=== PATIENT | male | born 1940 | race Caucasian/White ===

== ENCOUNTER 2017-10-14 07:16 | Inpatient (IN) ==
[2017-10-14] MEDS ORDERED: IPRATROPIUM/ALBUTEROL 3 ML AMPUL.NEB NEB ONE ×2 (07:18→07:22)
[2017-10-14] MEDS ORDERED: LACTATED RINGERS 1,000 ML IV ONE (07:25)
--- NOTE | 2017-10-14 07:36 | Emergency Department Note ---
General Adult HPI - General Chief complaint: Weakness Stated complaint: Weakness Time Seen by Provider: 10/14/17 07:31 Source: EMS Mode of arrival: wheelchair Limitations: altered mental status - History of Present Illness HPI Narrative: This patient lives at [facility] and was found on the floor of his room to weak to get up. Had a fever. He is brought to the emergency room where he does have a cough. He has slight nausea. Feels slightly short of breath. - Related Data Home Medications Medication Instructions Recorded Confirmed aspirin 325 mg tablet 325 mg PO QDAY 04/29/17 04/29/17 docusate sodium 100 mg capsule 100 mg PO BID PRN 04/29/17 04/29/17 naproxen sodium 220 mg tablet 220 mg PO Q6H PRN tab 04/29/17 04/29/17 Previous Rx's Medication Instructions Recorded amlodipine 5 mg tablet 5 mg PO QDAY #90 tab 06/08/17 citalopram 20 mg tablet See Label Instructions .ROUTE 08/20/17 .COMPLEX #30 tab ramipril 10 mg capsule 10 mg PO QDAY #90 cap 08/24/17 metoprolol tartrate 50 mg tablet 75 mg PO BID #180 tab 09/07/17 sennosides 8.6 mg tablet 8.6 mg PO BID PRN #180 tab 09/21/17 acetaminophen ER 650 mg 650 mg PO BID #270 tab 09/23/17 tablet,extended release WHEEL CHAIR #1 ea 10/06/17 Allergies Allergy/AdvReac Type Severity Reaction Status Date / Time No Known Drug Intolerances Allergy Unknown Unknown Verified 10/14/17 07:22 Review of Systems All systems ED: reviewed and negative except as stated. 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) Closed displaced fracture of left clavicle (Chronic) Chronic obstructive pulmonary disease (Chronic) CVA (cerebral vascular accident) (Chronic) Benign prostatic hypertrophy with lower urinary tract symptoms (LUTS) (Chronic) Past Surgical History History of coronary artery bypass graft (Chronic) Family History Brother Coronary artery disease Father Coronary artery disease Mother Parkinson's Disease Unknown Diabetes mellitus Essential hypertension Malignant neoplasm Cerebrovascular accident Medical history: Reports: other (History of a CABG, stroke, hypertension, hyperlipidemia, depression, COPD, BPH, MS) Surgical history ED: Reports: other (turp) - Social History smoking status: Former smoker Alcohol use: Reports: None Drug use: Reports: none Physical Exam Limitations: altered mental status General appearance: alert Head: atraumatic Eye: Present: normal appearance ENT: normal exam Neck: Present: normal inspection Chest: Present: normal inspection Respiratory: Present: other (Scattered rales and rhonchi) Cardiovascular: Present: regular rate, normal rhythm, normal heart sounds Abdominal: Present: soft. Absent: distention, tenderness Neurological: Present: alert Psychiatric: Present: normal affect, normal mood Skin: Present: warm, dry Course Vital Signs Temperature 100.4 F H 10/14/17 07:16 Pulse Rate 124 H 10/14/17 07:16 Respiratory Rate 28 H 10/14/17 07:16 Pulse Oximetry (%) 96 10/14/17 07:16 Temperature 100.4 F H 10/14/17 07:16 Pulse Rate 105 H 10/14/17 08:01 Respiratory Rate 23 H 10/14/17 08:01 Blood Pressure 166/88 10/14/17 07:46 Pulse Oximetry (%) 94 10/14/17 08:01 Medical Decision Making - MDM Narrative Medical decision making narrative: This patient most likely has urosepsis. We have done blood cultures and he is received Levaquin and Rocephin. He will be admitted to the hospital by Dr. Brito. - Lab Data Lab results reviewed: Yes I reviewed the patient's lab results. Result diagrams: 10/14/17 07:34 10/14/17 07:34 Lab Results 10/14/17 10/14/17 10/14/17 Range/Units 07:34 07:34 07:43 WBC 18.7 H (4.5-11.0) K/mcL RBC 5.32 (4.50-5.90) M/mcL Hgb 15.2 (13.5-16.5) g/dL Hct 46.3 (41.0-55.0) % MCV 86.9 (80.0-100.0) fL MCH 28.6 (26.0-34.0) pg MCHC 32.9 (31.0-36.0) g/dL RDW 13.6 (11.5-14.5) % Plt Count 242 (140-440) K/mcL MPV 9.7 (7.4-10.4) fL Band Neutrophils % Not Reportable VBG Lactic Acid 1.8 (0.5-2.2) mmol/L Urine Color Angelica Urine Appearance Cloudy Urine pH 7.0 (5.0-9.0) Ur Specific [place] 1.015 (1.000-1.035) Urine Protein 100 A (NEG) mg/dL Urine Glucose (UA) Negative (NEG) mg/dL Urine Ketones Neg (NEG) mg/dL Urine Occult Blood >=1.0 A (<0.03) mg/dL Urine Nitrate Pos A (NEG) Urine Bilirubin Neg (NEG) mg/dL Urine Urobilinogen 4.0 A (NEG) mg/dL Ur Leukocyte Esterase 500 A (NEG) /uL Urine RBC 124 H (0-1) /hpf Urine WBC > 182 H (0-4) /hpf Ur Squamous Epith Cells 0 (0-4) /hpf Urine Bacteria 0 (0) /hpf Urine Mucus Many A (0) /hpf Ur Culture Indicated? Yes - Radiology Data Radiology results reviewed: Yes I reviewed the patient's radiology results. Disposition Pt seen by BRUSH FABRICATION SUPERVISOR/PA only: No Clinical Impression: UTI (urinary tract infection), Sepsis Disposition: Xfer As Inpt ([facility]) Condition: Fair Referrals: Cornelio Santamaria MD [Primary Care Provider] - Time of Disposition: 08:45
--- NOTE | 2017-10-14 07:55 | XRay Report ---
CLINICAL INFORMATION: Cough and fever COMPARISON: 03/07/2014 and 09/07/2017 FINDINGS: Mild cardiomegaly is unchanged from most recent film. Sternotomy changes noted. Mediastinum and pulmonary vessels are normal. MAINTENANCE SPECIALIST shunt catheter extending over the right neck chest and right upper quadrant abdomen is intact. Mild strandy airspace disease has developed in the left base. It is more likely atelectasis than developing infiltrate. Small left pleural effusion noted IMPRESSION: Small region of atelectasis or, less likely, infiltrate developing in the left lung base with tiny left pleural effusion Mild cardiomegaly - stable Interpreted and Authenticated by: Tino Abad 10/14/17
[2017-10-14] MEDS ORDERED: cefTRIAXone 1 GM VIAL IV ONE (08:02)
[2017-10-14] MEDS ORDERED: LEVOFLOXACIN 750 MG/150 ML BAG IV ONE (08:02)
[2017-10-14 08:24] LABS: Mean Cell Volume 86.9 fL (80.0-100.0); Mean Corpuscular HGB Conc 32.9 g/dL (31.0-36.0); Mean Corpuscular Hemoglobin 28.6 pg (26.0-34.0); Platelet Count 242 K/mcL (140-440); RBC 5.32 M/mcL (4.50-5.90); Red Cell Distribution Width 13.6 % (11.5-14.5)
[2017-10-14 08:41] LABS: Appearance,Urine CLOUDY; Bacteria,Urine 0 /hpf (0); Bilirubin,Urine NEG (NEG); Color,Urine AMBER; Glucose,Urine (UA) NEGATIVE (NEG); Leukocyte Esterase,Urine 500 /uL (NEG); Mucus,Urine MANY /hpf (0); Protein,Urine 100 mg/dL (NEG); Specific Gravity,Urine 1.015 (1.000-1.035); Urine Blood >=1.0 mg/dL (<0.03); Urine RBC 124 /hpf (0-1); Urine Squamous Epithelial Cell 0 /hpf (0-4); Urine WBC > 182 /hpf (0-4)
[2017-10-14 08:50] LABS: ALT/SGPT 83 U/l (0-40); Albumin/Globulin Ratio 1.2 (1.0-2.3); Alkaline Phosphatase 110 U/L (39-117); Blood Urea Nitrogen 11 mg/dl (8-23)
[2017-10-14 08:51] LABS: Lymphocytes % 11 % (15-49); Monocytes % (Manual) 7 % (1-12); Platelet Estimate NORMAL (NORMAL); RBC Morphology NORMAL (NORMAL); Segmented Neutrophils % 79 % (38-78)
--- NOTE | 2017-10-14 09:47 | Internal Med History&Physical ---
Medical - H&P: HPI Patient information: Note initiated : 10/14/17 at 9:43 am Service Date, if different from initiated Date: [] Patient: César Wyman a 76 y/o M admitted on for Weakness. Chief Complaint: [] History of present illness: Mr. Wyman is a 76 year old M with h/o c va, ? dementia, NPH s/p MACHINE BENDER shunt 2 weeks ago, resident at assisted living facility presents to the ER today brought in by EMS for AMS, ? found down? this AM. The patient is a poor history provider denies any acute complaints except for wet cough x 3-5 days. The patient was found altered and confused since 4 this AM, as per the nursing, sitting in his room with inability to get up and with fever, tachycardia and some shortness of breath. At baseline the patient seems to be fairly with it, able to care for self with help, ambulating with the help of a walker. In the ER the patient was noted to be febrile, tachycardic, he had an elevated wbc count, and was quite confused and figidty. His CXR interpreted as possible Right basilar pna, ua suggestive of UTI, he was given ABX and admitted to the hospital for further management. 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) Closed displaced fracture of left clavicle (Chronic) Chronic obstructive pulmonary disease (Chronic) CVA (cerebral vascular accident) (Chronic) Benign prostatic hypertrophy with lower urinary tract symptoms (LUTS) (Chronic) Surgical history: Past Surgical History History of coronary artery bypass graft (Chronic) Pertinent family history: Family History Brother Coronary artery disease Father Coronary artery disease Mother Parkinson's Disease Unknown Diabetes mellitus Essential hypertension Malignant neoplasm Cerebrovascular accident Medical - H&P: Meds Home Medications Medication Instructions Recorded Confirmed Type aspirin 325 mg tablet 325 mg PO QDAY 04/29/17 10/14/17 History docusate sodium 100 mg capsule 100 mg PO BID PRN 04/29/17 10/14/17 History naproxen sodium 220 mg tablet 220 mg PO Q6H PRN tab 04/29/17 10/14/17 History ramipril 10 mg capsule 10 mg PO QDAY #90 cap 08/24/17 10/14/17 Rx metoprolol tartrate 50 mg tablet 75 mg PO BID #180 tab 09/07/17 10/14/17 Rx sennosides 8.6 mg tablet 8.6 mg PO BID PRN #180 tab 09/21/17 10/14/17 Rx acetaminophen ER 650 mg 650 mg PO BID #270 tab 09/23/17 10/14/17 Rx tablet,extended release WHEEL CHAIR #1 each 10/06/17 Rx Naproxen [Naprosyn] 250 mg PO QAMCC PRN 10/14/17 10/14/17 History Ondansetron HCl [Zofran ODT] 4 mg SL Q4HP PRN 10/14/17 10/14/17 History amLODIPine [Norvasc] 10 mg PO QDAY 10/14/17 10/14/17 History guaiFENesin [Mucinex] 600 mg PO DAILY PRN 10/14/17 10/14/17 History hydrALAZINE [Apresoline] 10 mg PO TID PRN 10/14/17 10/14/17 History traMADol [Ultram] 50 - 100 mg PO Q4-6HP PRN 10/14/17 10/14/17 History Allergies Allergy/AdvReac Type Severity Reaction Status Date / Time No Known Drug Intolerances Allergy Unknown Unknown Verified 10/14/17 07:22 Medical - H&P: Exam - Constitutional Vitals: Temp Pulse Resp BP Pulse Ox 99.8 F H 117 H 25 H 171/77 96 10/14/17 08:45 10/14/17 08:57 10/14/17 08:57 10/14/17 08:31 10/14/17 08:57 Exam: GENERAL: The patient is a well-developed, well-nourished in no apparent distress. Is alert and oriented x1, konws he is in hospital, knows preseident but not year, month or why he is here. VITAL SIGNS: Reviewed and as noted elsewhere. HEENT: Head is normocephalic and atraumatic. Extraocular muscles are intact. Pupils are equal, round, and reactive to light. Nares appeared normal. Mouth appears any without lesions. Mucous membranes are moist. NECK: Normal to inspection, Supple, No lymphadenopathy or thyromegaly. LUNGS: Air entry equal on both sides, prolonged exp phase, no wheezing or crackles or rhonchi noted. No accessory muscles of respiration HEART: tachycardic, regular rythm, s1,s2 heard, no rub or gallop. no gross murmur. ABDOMEN: Soft, nontender, and nondistended. Positive bowel sounds. No hepatosplenomegaly was noted. EXTREMITIES: No cyanosis, clubbing, rash, lesions or edema. NEUROLOGIC: Cranial nerves II through XII are grossly intact. Motor and Sensory System Grossly Intact, vp outcomes shunt noted on the right side of the head. PSYCHIATRIC: confused, figidity, trying to get outof bed, restless SKIN: No ulceration or wounds noted, No jaundice, No rash noted. Medical - H&P: Reslt - Labs CBC & Chem 7: 10/14/17 07:34 10/14/17 07:34 Labs: Short CBC 10/14/17 Range/Units 07:34 WBC 18.7 H (4.5-11.0) K/mcL Hgb 15.2 (13.5-16.5) g/dL Hct 46.3 (41.0-55.0) % Plt Count 242 (140-440) K/mcL BMP 10/14/17 07:34 Sodium 138 Potassium 4.2 Chloride 100 Carbon Dioxide 24 BUN 11 Creatinine 0.8 Glucose 115 H Calcium 9.0 Liver Function 10/14/17 Range/Units 07:34 Total Bilirubin 1.1 H (0.0-1.0) mg/dL AST 72 H (0-37) U/l ALT 83 H (0-40) U/l Alkaline Phosphatase 110 (39-117) U/L Albumin 4.0 (3.2-5.2) gm/dL Urine 10/14/17 Range/Units 07:43 Urine Color Angelica Urine Appearance Cloudy Urine pH 7.0 (5.0-9.0) Ur Specific [place] 1.015 (1.000-1.035) Urine Protein 100 A (NEG) mg/dL Urine Glucose (UA) Negative (NEG) mg/dL Medical - H&P: A/P - Narrative A/P Narrative: a/P UTI Pneumonia, possible aspiration Sepsis HTN HLD Altered mental status/ Delirium h/o CVA BPH abnl lft Plan admit to tele IV fluids IV ertapenem to cover for possible aspiration pna as well as UTI deescalate as per sensitivity get renal ultrasound get HEAD CT given recent procedure and altered status close monitoring fall risk trend labs continue home meds trend lft for now likely related to sepsis DVT hep sq Diet cardiac Full code Social History - Tobacco smoking status: Former smoker - Alcohol alcohol intake frequency: former alcohol drinker - Substance use substance use type: does not use
[2017-10-14] MEDS ORDERED: ONDANSETRON 4 MG/2 ML VIAL IV PRN (09:51)
[2017-10-14] MEDS ORDERED: guaiFENesin 600 MG TAB.SR.12H PO PRN ×2 (09:51→10:00)
[2017-10-14] MEDS ORDERED: hydrALAZINE 10 MG TABLET PO PRN ×2 (09:51→10:00)
[2017-10-14] MEDS ORDERED: ACETAMINOPHEN 325 MG TABLET PO PRN (09:51)
[2017-10-14] MEDS ORDERED: DOCUSATE SODIUM 100 MG CAPSULE PO PRN (09:51)
[2017-10-14] MEDS: ERTAPENEM 1 GM in 0.9 % SODIUM CHLORIDE 50 ML IV SCH (10:38)
--- NOTE | 2017-10-14 10:52 | Cat Scan Report ---
CLINICAL INFORMATION: History of TOOL KEEPER shunt - extremity weakness COMPARISON: 09/16/2017 TECHNIQUE: 2.5 mm helical slices were obtained in the skull base to vertex. Following reconstruction, axial reformatted images were reviewed at bone and parenchymal windows. The exam was performed using radiation dose optimization techniques including, but not limited to, automated exposure control, adjustment of the mA and/or kV according to patient size and use of iterative reconstruction technique. FINDINGS: The TOOL KEEPER shunt enters the right frontal craniotomy extending through the right frontal lobe into the frontal horn of the right lateral ventricle through the foramen of [place] into the anterior third ventricle. The tip appears to abut the inferior wall of the third ventricle. The ventricles remain moderately dilated - increased from the previous study. There is patchy low-attenuation in the deep periventricular white matter likely representing a combination of CSF transependymal migration and chronic ischemia. Physiologic calcification noted within the lentiform nuclei. There is no intracerebral hemorrhage, mass effect or edema. Sulci and fissures are also widened compatible with moderate underlying atrophy - unchanged. Nine mm partially calcified lesion in the left shruti has been stable over 1.5 years. It is thought to represent a small venous angioma on prior brain MRI IMPRESSION: 1. Moderate normal pressure hydrocephalus - worsening slightly 2. Mild underlying atrophy and chronic ischemic changes in the the cerebral white matter unchanged and compatible with advanced age. 3. 9 mm lesion in the left superior shruti, stable for more than two years and likely a venous angioma. (Also seen on previous brain MRI) Interpreted and Authenticated by: Tino Abad 10/14/17
[2017-10-14] MEDS: 0.9 % SODIUM CHLORIDE 10 ML SYRINGE IV SCH ×3 (11:15→22:11)
[2017-10-14] MEDS: IPRATROPIUM/ALBUTEROL 3 ML AMPUL.NEB NEB SCH ×3 (11:16→19:15)
[2017-10-14] MEDS: LACTATED RINGERS 1,000 ML IV SCH (11:17)
[2017-10-14] MEDS: predniSONE 20 MG TABLET PO SCH (11:20)
[2017-10-14] MEDS ORDERED: ACETAMINOPHEN 650 MG/65 ML BOTTLE IV PRN (13:38)
[2017-10-14] MEDS: HEPARIN 5,000 UNIT/ML VIAL SQ SCH (21:40)
[2017-10-14] MEDS: METOPROLOL TARTRATE 50 MG TABLET PO SCH (21:41)
[2017-10-15] MEDS: LACTATED RINGERS 1,000 ML IV SCH ×2 (01:13→15:24)
[2017-10-15] MEDS: IPRATROPIUM/ALBUTEROL 3 ML AMPUL.NEB NEB SCH ×4 (01:14→19:01)
[2017-10-15] MEDS: 0.9 % SODIUM CHLORIDE 10 ML SYRINGE IV SCH ×3 (05:50→20:46)
[2017-10-15 05:55] LABS: Basophils # (Auto) 0 K/mcL (0.0-0.3); Basophils % (Auto) 0 % (0.0-2.0); Eosinophils # (Auto) 0 K/mcL (0.0-0.7); Eosinophils % (Auto) 0 % (0.0-7.0); Granulocytes % (Auto) 86.3 % (38.0-78.0); Lymphocytes # (Auto) 1.7 K/mcL (1.5-4.8); Mean Cell Volume 88.5 fL (80.0-100.0); Mean Corpuscular HGB Conc 33.3 g/dL (31.0-36.0); Mean Corpuscular Hemoglobin 29.4 pg (26.0-34.0); Monocytes # (Auto) 1.2 K/mcL (0.1-0.9); Monocytes % (Auto) 5.7 % (1.0-12.0); Platelet Count 217 K/mcL (140-440); RBC 4.34 M/mcL (4.50-5.90); Red Cell Distribution Width 13.9 % (11.5-14.5)
[2017-10-15 06:01] LABS: ALT/SGPT 59 U/l (0-40); Albumin 3.5 gm/dL (3.2-5.2); Albumin/Globulin Ratio 1.3 (1.0-2.3); Alkaline Phosphatase 96 U/L (39-117); Bilirubin,Direct < 0.2 mg/dL (0.0-0.3); Blood Urea Nitrogen 12 mg/dl (8-23); Gamma Glutamyl Transpeptidase 54 U/L (8-61); Uric Acid 5.4 mg/dL (2.5-8.0)
[2017-10-15] MEDS ORDERED: ASPIRIN 325 MG ENTERIC COATED TABLET PO SCH (09:00)
[2017-10-15] MEDS: HEPARIN 5,000 UNIT/ML VIAL SQ SCH ×2 (09:03→20:36)
[2017-10-15] MEDS: METOPROLOL TARTRATE 50 MG TABLET PO SCH ×3 (09:04→20:36)
[2017-10-15] MEDS: LISINOPRIL 20 MG TABLET PO SCH ×2 (09:04→09:45)
[2017-10-15] MEDS: predniSONE 20 MG TABLET PO SCH ×2 (09:04→09:45)
[2017-10-15] MEDS: amLODIPine 5 MG TABLET PO SCH ×2 (09:04→09:43)
[2017-10-15] MEDS: ERTAPENEM 1 GM in 0.9 % SODIUM CHLORIDE 50 ML IV SCH (09:08)
[2017-10-15] MEDS ORDERED: IOPAMIDOL 100 ML BOTTLE IV ONE (11:38)
--- NOTE | 2017-10-15 11:39 | Internal Med Progress Note ---
Medical - PN: Subj Patient information: Note initiated : 10/15/17 at 11:36 am Service Date, if different from initiated Date: [] Patient: César Wyman a 76 y/o M admitted on 10/14/17 for Weakness/Urosepsis. Chief Complaint: [] Interval history: Mr. Wyman is a 76 year old M with h/o c va, ? dementia, NPH s/p DEBONE SUPERVISOR shunt 2 weeks ago, resident at assisted living facility presents to the ER today brought in by EMS for AMS, ? found down? this AM. The patient is a poor history provider denies any acute complaints except for wet cough x 3-5 days. The patient was found altered and confused since 4 this AM, as per the nursing, sitting in his room with inability to get up and with fever, tachycardia and some shortness of breath. At baseline the patient seems to be fairly with it, able to care for self with help, ambulating with the help of a walker. In the ER the patient was noted to be febrile, tachycardic, he had an elevated wbc count, and was quite confused and figidty. His CXR interpreted as possible Right basilar pna, ua suggestive of UTI, he was given ABX and admitted to the hospital for further management. lactic acid is normal echo done this year 05/06- normal lvef, 10/15 Patient seen examined, no acute overnight issues, pt tolerating po diet well, hemodynamically stable Renal usg done pending result but on my view I see some dilatation of rigth side renal pelvis, pt has worsening leucocytosis, will get CT abdomen and pelvis pt quite emotionally labile, wants to go home will xfer to med surg today. Pertinent ROS: Denies headache, dizziness Denies chest pain, palpitations Denies cough or shortness of breath Denies abdominal pain, nausea or vomiting. - Constitutional Vitals: Vital Signs Temp Pulse Resp BP Pulse Ox 98.5 F 55 L 18 148/59 98 10/15/17 08:12 10/15/17 07:12 10/15/17 08:12 10/15/17 08:12 10/15/17 08:12 Period Temp Pulse Resp BP Sys/Rod Pulse Ox Last 24 Hr 97.2 F-100.8 F 55-117 16-22 125-148/58-94 90-100 Intake and Output 10/14/17 10/15/17 10/15/17 21:59 05:59 13:59 Intake Total 185 / 185 1275 / 1275 810 / 810 Output Total 725 / 725 500 / 500 Balance -540 / -540 775 / 775 810 / 810 Weight 179 lb 8 oz Intake & Output: Intake & Output 10/14/17 10/15/17 10/15/17 21:59 05:59 13:59 Intake Total 185 / 185 1275 / 1275 810 / 810 Output Total 725 / 725 500 / 500 Balance -540 / -540 775 / 775 810 / 810 Weight 179 lb 8 oz Intake: IV 65 / 65 1000 / 1000 50 / 50 INVanz 1 GM In Sodium Chloride 50 / 50 0.9% 50 ml @ 100 mls/hr IV Q24H ARMANDO Rx#:[id number] Lactated Ringers 1,000 ml @ 75 1000 / 1000 mls/hr IV .[id number] ARMANDO Rx#: [id number] Oral 120 / 120 275 / 275 760 / 760 Output: Urine Catheter Amount 725 / 725 500 / 500 Other: Meal Dinner Breakfast Percent of Meal Consumed 100% 100% Feeding Ability Total Assistance Needs Supervision # Bowel Movements 0 Exam: Constitutional; Afebrile, cooperative, alert, not in distress. Eyes- No icterus, , No periorbital swelling Ears- Ext ear normal, hearing normal to conversation. Neck- Midline trachea, supple Respiratory system: Air Entry equal on both sides, No crackles or wheezing, no rhonchi. CVS- Rate rhythm regular, S1,S2 heard, no gallop, no rub. Abdomen- Soft nontender abdomen, no organomegaly, no tenderness, no guarding or rigidity, CHIEF MEDICAL PHYSICIST- AOOx2 (knows self, that he is in hospital, and morteza is president) , moving all extremities, no gross focal deficit noted. Medical - PN: Obj Da - Labs CBC & Chem 7: 10/15/17 03:40 10/15/17 03:40 Labs: Abnormal Lab Results 10/15/17 10/15/17 10/14/17 03:40 03:40 07:43 WBC 21.5 H RBC 4.34 L Hgb 12.8 L Hct 38.4 L Gran % 86.3 H Lymph % (Auto) 8.0 L Gran # 18.6 H Tucker # (Auto) 1.2 H Seg Neutrophils % Lymphocytes % Reactive Lymphocytes Glucose 118 H Total Bilirubin AST ALT 59 H Urine Protein 100 A Urine Occult Blood >=1.0 A Urine Nitrate Pos A Urine Urobilinogen 4.0 A Ur Leukocyte Esterase 500 A Urine RBC 124 H Urine WBC > 182 H Urine Mucus Many A 10/14/17 10/14/17 07:34 07:34 WBC 18.7 H RBC Hgb Hct Gran % Lymph % (Auto) Gran # Tucker # (Auto) Seg Neutrophils % 79 H Lymphocytes % 11 L Reactive Lymphocytes 3 H Glucose 115 H Total Bilirubin 1.1 H AST 72 H ALT 83 H Urine Protein Urine Occult Blood Urine Nitrate Urine Urobilinogen Ur Leukocyte Esterase Urine RBC Urine WBC Urine Mucus Meds: Medications Acetaminophen (Tylenol) 650 mg PO Q6HP PRN PRN Reason: PAIN/FEVER > 101 Albuterol/Ipratropium (Duoneb) 3 ml NEB Q6HRT [facility] Last Admin: 10/15/17 07:09 Dose: 3 ml Amlodipine Besylate (Norvasc) 10 mg PO QDAY [facility] Last Admin: 10/15/17 09:43 Dose: Not Given Aspirin (Ecotrin) 325 mg PO DAILY [facility] Last Admin: 10/15/17 09:04 Dose: 325 mg Docusate Sodium (Colace) 100 mg PO BID PRN PRN Reason: Constipation Guaifenesin (Mucinex) 600 mg PO DAILYP PRN PRN Reason: Cough Heparin Sodium (Porcine) (Heparin) 5,000 unit SQ Q12 [facility] Last Admin: 10/15/17 09:03 Dose: 5,000 unit Hydralazine HCl (Apresoline) 10 mg PO TIDP PRN PRN Reason: Blood Pressure Ertapenem 1 gm/ Sodium (Chloride) 50 mls @ 100 mls/hr IV Q24H [facility] Last Infusion: 10/15/17 09:38 Dose: Infused Lactated Ringer's (Lactated Ringers) 1,000 mls @ 75 mls/hr IV .[id number] [facility] Stop: 10/16/17 01:50 Last Admin: 10/15/17 01:13 Dose: 75 mls/hr Acetaminophen (Ofirmev) 650 mg in 65 mls @ 130 mls/hr IV Q6HP PRN PRN Reason: PAIN/FEVER > 101 Last Infusion: 10/14/17 14:51 Dose: Infused Lisinopril (Zestril) 20 mg PO DAILY [facility] Last Admin: 10/15/17 09:45 Dose: Not Given Metoprolol Tartrate (Lopressor) 75 mg PO BID [facility] Last Admin: 10/15/17 09:45 Dose: Not Given Ondansetron HCl (Zofran) 4 mg IV Q4HP PRN PRN Reason: Nausea And Vomiting Last Admin: 10/14/17 11:30 Dose: 4 mg Prednisone (Prednisone) 40 mg PO [facility] Stop: 10/18/17 08:01 Last Admin: 10/15/17 09:45 Dose: Not Given Sodium Chloride (Saline Flush) 10 ml IV Q8 [facility] Last Admin: 10/15/17 05:50 Dose: Not Given Medical - PN: A/P - Time Spent With Patient Total time spent is greater than 50% in coordination of care (as documented) at patient's floor/unit and/or counseling patient: - Narrative A/P Narrative: a/P UTI Pneumonia, possible aspiration Sepsis HTN HLD Altered mental status/ Delirium h/o CVA BPH abnl lft Plan xfer to med surg status Continue antibiotics, microbiology pending still pt mental status better, has no complaints deescalate abx per microbiology IV ertapenem to cover for possible aspiration pna as well as UTI worsening leucocytosis noted, CT scan ordered Head ct reported as worsening hydrocephalus? will try touch base with his neurosurgeon today fall risk continue home meds trend lft for now likely related to sepsis, trending down today. DVT hep sq Diet cardiac Full code Medical - PN: Qual - VTE Deep Vein Thrombosis/Pulmonary Embolism Present on Admission: No
[2017-10-15] MEDS ORDERED: DOCUSATE SODIUM 100 MG CAPSULE PO PRN (11:59)
[2017-10-15] MEDS ORDERED: ACETAMINOPHEN 325 MG TABLET PO PRN (11:59)
[2017-10-15] MEDS ORDERED: ACETAMINOPHEN 650 MG/65 ML BOTTLE IV PRN (11:59)
[2017-10-15] MEDS ORDERED: ONDANSETRON 4 MG/2 ML VIAL IV PRN (11:59)
--- NOTE | 2017-10-15 13:05 | Cat Scan Report ---
CLINICAL INFORMATION: Urinary tract infection and elevated white blood cell count COMPARISON: 01/24/[address] TECHNIQUE: Following enteric contrast, 80 cc of Isovue-300 were injected intravenously, and 60 seconds later, 0.625 mm helical slices were obtained from the mid heart through the subtrochanteric regions. Following reconstruction, 2.5 mm sagittal, coronal and axial reformatted images were processed and reviewed at bone, lung and soft tissue windows. Five minutes later, 0.625 mm helical slices were obtained from the mid heart through the kidneys and viewed at soft tissue windows.The exam was performed using radiation dose optimization techniques including, but not limited to, automated exposure control, adjustment of the mA and/or kV according to patient size and use of iterative reconstruction technique. FINDINGS: Lung bases show moderate subsegmental atelectasis in both posterior lower lobes. Tiny bilateral pleural effusions noted. The heart is moderately enlarged, but unchanged. Images through the abdomen show mild fatty changes within the liver, but no focal hepatic lesion. The gallbladder and bile ducts, pancreas and spleen are normal. Simple cysts in both kidneys, ranging up to 3.5 cm inferior pole the left kidney, are unchanged. Kidneys are otherwise unremarkable - no CT evidence of pyleonephritis evidence for infection. Small adenoma in the left adrenal gland unchanged. The right adrenal gland is normal. Aorta is normal in contour and caliber with atherosclerotic plaque. 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 Celiac, renal and SONDRA arteries are patent. There is a 90% stenosis of left internal iliac artery. The remaining arteries are widely patent. Images of the pelvis show prostate and seminal vesicles to be unremarkable. Coronado catheter is in proper position within the urinary bladder. Urinary bladder urine is elevated attenuation - 24 Hounsfield units which could indicate hemorrhage or purulent material. No evidence of urinary bladder wall thickening however. The BRAKE REPAIRER shunt catheter extends along the deep Camper's fascia of the right upper quadrant and traverses the right rectus sheath in the periumbilical region descending in the anterior mesenteric cavity to loop in the false pelvis. A small amount of free fluid deep true pelvis seen - as expected. The stomach, small and large bowel are unremarkable with exception of a few sigmoid diverticuli. Bone windows show only moderate degenerative changes in the lower lumbar spine IMPRESSION: 1. Simple cysts on both kidneys which are stable. No CT evidence for pyelonephritis. There is increased attenuation within the urinary bladder which could indicate cystitis. 2. 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 Patient may be a risk for mesenteric ischemia. The celiac and SONDRA are widely patent, however. 90% stenosis noted in the left internal iliac artery - if impotence is a clinical problem, the patient may benefit from stenting this stenosis. 3. Moderate subsegmental atelectasis both lower lobes and tiny bilateral pleural effusions Interpreted and Authenticated by: Tino Abad 10/15/17
--- NOTE | 2017-10-15 14:33 | Ultrasound Report ---
CLINICAL INFORMATION: Urinary tract infection COMPARISON: None. FINDINGS: Both kidneys are normal in size, position, configuration and echotexture: The right is 10 x 6 cm and the left is 11 x 6 cm. There are two cysts in the left kidney: 3.8 cm and 2.4 cm respectively. There is a 2.1 cm cyst in the mid right kidney. No stone, solid lesions or hydronephrosis. Coronado catheter position within the bladder which is decompressed no gross bladder abnormality IMPRESSION: Bilateral renal cysts - no significant abnormality Interpreted and Authenticated by: Tino Abad 10/15/17
[2017-10-15] MEDS: hydrALAZINE 10 MG TABLET PO PRN (23:29)
[2017-10-16] MEDS: IPRATROPIUM/ALBUTEROL 3 ML AMPUL.NEB NEB SCH ×6 (01:11→23:40)
[2017-10-16] MEDS: LACTATED RINGERS 1,000 ML IV SCH (03:02)
[2017-10-16] MEDS: guaiFENesin 600 MG TAB.SR.12H PO PRN (04:30)
[2017-10-16 04:38] LABS: Basophils # (Auto) 0 K/mcL (0.0-0.3); Basophils % (Auto) 0.3 % (0.0-2.0); Eosinophils # (Auto) 0.1 K/mcL (0.0-0.7); Eosinophils % (Auto) 0.6 % (0.0-7.0); Lymphocytes # (Auto) 2.7 K/mcL (1.5-4.8); Lymphocytes % (Auto) 17.7 % (15.5-49.0); Mean Cell Volume 87.3 fL (80.0-100.0); Mean Corpuscular HGB Conc 33.2 g/dL (31.0-36.0); Monocytes # (Auto) 0.8 K/mcL (0.1-0.9); Monocytes % (Auto) 5.4 % (1.0-12.0); Platelet Count 248 K/mcL (140-440); RBC 4.43 M/mcL (4.50-5.90); Red Cell Distribution Width 13.9 % (11.5-14.5)
[2017-10-16 04:48] LABS: ALT/SGPT 42 U/l (0-40); Albumin 3.3 gm/dL (3.2-5.2); Albumin/Globulin Ratio 1.1 (1.0-2.3); Alkaline Phosphatase 88 U/L (39-117); Bilirubin,Direct < 0.2 mg/dL (0.0-0.3); Blood Urea Nitrogen 9 mg/dl (8-23); Gamma Glutamyl Transpeptidase 44 U/L (8-61); Uric Acid 5.5 mg/dL (2.5-8.0)
[2017-10-16] MEDS: 0.9 % SODIUM CHLORIDE 10 ML SYRINGE IV SCH ×3 (05:35→20:36)
[2017-10-16] MEDS ORDERED: ERTAPENEM 1 GM in 0.9 % SODIUM CHLORIDE 50 ML IV SCH (09:00)
[2017-10-16] MEDS: predniSONE 20 MG TABLET PO SCH (09:05)
[2017-10-16] MEDS: HEPARIN 5,000 UNIT/ML VIAL SQ SCH ×2 (09:06→20:35)
[2017-10-16] MEDS: ASPIRIN 325 MG ENTERIC COATED TABLET PO SCH (09:06)
[2017-10-16] MEDS: METOPROLOL TARTRATE 50 MG TABLET PO SCH ×2 (09:06→20:34)
[2017-10-16] MEDS: amLODIPine 5 MG TABLET PO SCH (09:07)
[2017-10-16] MEDS: LISINOPRIL 20 MG TABLET PO SCH (09:07)
--- NOTE | 2017-10-16 13:25 | Internal Med Progress Note ---
Medical - PN: Subj Patient information: Note initiated : 10/16/17 at 1:22 pm Service Date, if different from initiated Date: [] Patient: César Wyman a 76 y/o M admitted on 10/14/17 for Weakness/Urosepsis. Chief Complaint: [] Interval history: Mr. Wyman is a 76 year old M with h/o c va, ? 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 found down? this AM. The patient is a poor history provider denies any acute complaints except for wet cough x 3-5 days. The patient was found altered and confused since 4 this AM, as per the nursing, sitting in his room with inability to get up and with fever, tachycardia and some shortness of breath. At baseline the patient seems to be fairly with it, able to care for self with help, ambulating with the help of a walker. In the ER the patient was noted to be febrile, tachycardic, he had an elevated wbc count, and was quite confused and figidty. His CXR interpreted as possible Right basilar pna, ua suggestive of UTI, he was given ABX and admitted to the hospital for further management. lactic acid is normal echo done this year 05/06- normal lvef, 10/15 Patient seen examined, no acute overnight issues, pt tolerating po diet well, hemodynamically stable Renal usg done pending result but on my view I see some dilatation of rigth side renal pelvis, pt has worsening leucocytosis, will get CT abdomen and pelvis pt quite emotionally labile, wants to go home will xfer to med surg today. 10/16 Patient seen and examined, overnight the patient was a bit anxious and tried to get out of bed otherwise no complaints. This morning sitting in the chair comfortably ate his breakfast. Mood seems to be better. CT negative for any acute intra-abdominal pathology. Urine culture pending blood cultures negative. No evidence of pneumonia basilar region on the CT scan of the abdomen. Discontinue ertapenem and start the patient on Rocephin starting tomorrow. It seems he got a dose of ertapenem today. Continue to work with rehab anticipate discharge on Wednesday Pertinent ROS: Denies headache, dizziness Denies chest pain, palpitations Denies cough or shortness of breath Denies abdominal pain, nausea or vomiting. - Constitutional Vitals: Vital Signs Temp Pulse Resp BP Pulse Ox 98.2 F 66 16 163/75 94 10/16/17 12:00 10/16/17 12:14 10/16/17 12:14 10/16/17 12:00 10/16/17 12:00 Period Temp Pulse Resp BP Sys/Rod Pulse Ox Last 24 Hr 97.8 F-98.4 F 64-85 16-22 152-172/70-80 90-94 Intake and Output 10/15/17 10/16/17 10/16/17 21:59 05:59 13:59 Intake Total 386 / 386 1300 / 1300 290 / 290 Output Total 2525 / 2525 875 / 875 Balance -2139 / -2139 425 / 425 290 / 290 Weight 182 lb 8 oz Intake & Output: Intake & Output 10/15/17 10/16/17 10/16/17 21:59 05:59 13:59 Intake Total 386 / 386 1300 / 1300 290 / 290 Output Total 2525 / 2525 875 / 875 Balance -2139 / -2139 425 / 425 290 / 290 Weight 182 lb 8 oz Intake: IV 266 / 266 1000 / 1000 50 / 50 INVanz 1 GM In Sodium Chloride 50 / 50 0.9% 50 ml @ 100 mls/hr IV Q24H [facility] Rx#:[id number] Oral 120 / 120 300 / 300 240 / 240 Output: Urine Catheter Amount 2525 / 2525 875 / 875 Other: Meal Lunch Breakfast Percent of Meal Consumed 100% 100% Feeding Ability Assist with Tray Set Up Assist with Tray Set Up Exam: Constitutional; Afebrile, cooperative, alert, not in distress. Eyes- No icterus, , No periorbital swelling Ears- Ext ear normal, hearing normal to conversation. Neck- Midline trachea, supple Respiratory system: Air Entry equal on both sides, prolonged expiratory phase noted, mild intermittent wheezing. CVS- Rate rhythm regular, S1,S2 heard, no gallop, no rub. Abdomen- Soft nontender abdomen, no organomegaly, no tenderness, no guarding or rigidity, PROGRAM MANAGER TRANSPORTATION- AOOx1, moving all extremities, no gross focal deficit noted. Medical - PN: Obj Da - Labs CBC & Chem 7: 10/16/17 03:40 10/16/17 03:40 Labs: Abnormal Lab Results 10/16/17 10/16/17 10/15/17 03:40 03:40 03:40 WBC 15.1 H RBC 4.43 L Hgb 12.9 L Hct 38.7 L Gran % Lymph % (Auto) Gran # 11.5 H Smith # (Auto) Seg Neutrophils % Lymphocytes % Reactive Lymphocytes Glucose 118 H Total Bilirubin AST ALT 42 H 59 H Triglycerides 165 H Urine Protein Urine Occult Blood Urine Nitrate Urine Urobilinogen Ur Leukocyte Esterase Urine RBC Urine WBC Urine Mucus 10/15/17 10/14/17 10/14/17 03:40 07:43 07:34 WBC 21.5 H 18.7 H RBC 4.34 L Hgb 12.8 L Hct 38.4 L Gran % 86.3 H Lymph % (Auto) 8.0 L Gran # 18.6 H Smith # (Auto) 1.2 H Seg Neutrophils % 79 H Lymphocytes % 11 L Reactive Lymphocytes 3 H Glucose Total Bilirubin AST ALT Triglycerides Urine Protein 100 A Urine Occult Blood >=1.0 A Urine Nitrate Pos A Urine Urobilinogen 4.0 A Ur Leukocyte Esterase 500 A Urine RBC 124 H Urine WBC > 182 H Urine Mucus Many A 10/14/17 07:34 WBC RBC Hgb Hct Gran % Lymph % (Auto) Gran # Smith # (Auto) Seg Neutrophils % Lymphocytes % Reactive Lymphocytes Glucose 115 H Total Bilirubin 1.1 H AST 72 H ALT 83 H Triglycerides Urine Protein Urine Occult Blood Urine Nitrate Urine Urobilinogen Ur Leukocyte Esterase Urine RBC Urine WBC Urine Mucus Meds: Medications Acetaminophen (Tylenol) 650 mg PO Q6HP PRN PRN Reason: PAIN/FEVER > 101 Albuterol/Ipratropium (Duoneb) 3 ml NEB Q4HRT [facility] Last Admin: 10/16/17 12:13 Dose: 3 ml Amlodipine Besylate (Norvasc) 10 mg PO QDAY [facility] Last Admin: 10/16/17 09:07 Dose: 10 mg Aspirin (Ecotrin) 325 mg PO DAILY [facility] Last Admin: 10/16/17 09:06 Dose: 325 mg Ceftriaxone Sodium (Rocephin) 2 gm IV Q24H [facility] Docusate Sodium (Colace) 100 mg PO BID PRN PRN Reason: Constipation Guaifenesin (Mucinex) 600 mg PO DAILYP PRN PRN Reason: Cough Heparin Sodium (Porcine) (Heparin) 5,000 unit SQ Q12 [facility] Last Admin: 10/16/17 09:06 Dose: 5,000 unit Hydralazine HCl (Apresoline) 10 mg PO TIDP PRN PRN Reason: Blood Pressure Last Admin: 10/15/17 23:29 Dose: 10 mg Acetaminophen (Ofirmev) 650 mg in 65 mls @ 130 mls/hr IV Q6HP PRN PRN Reason: PAIN/FEVER > 101 Lisinopril (Zestril) 20 mg PO DAILY [facility] Last Admin: 10/16/17 09:07 Dose: 20 mg Metoprolol Tartrate (Lopressor) 75 mg PO BID [facility] Last Admin: 10/16/17 09:06 Dose: 75 mg Ondansetron HCl (Zofran) 4 mg IV Q4HP PRN PRN Reason: Nausea And Vomiting Prednisone (Prednisone) 40 mg PO [facility] Stop: 10/18/17 08:01 Last Admin: 10/16/17 09:05 Dose: 40 mg Sodium Chloride (Saline Flush) 10 ml IV Q8 [facility] Last Admin: 10/16/17 05:35 Dose: 10 ml Medical - PN: A/P - Time Spent With Patient Total time spent is greater than 50% in coordination of care (as documented) at patient's floor/unit and/or counseling patient: - Narrative A/P Narrative: a/P UTI- Pneumonia, possible aspiration Sepsis HTN HLD Altered mental status/ Delirium h/o CVA BPH abnl lft COPD exacerbation Plan Discontinue ertapenem, start the patient on Rocephin from tomorrow. pt mental status better, has no complaints The patient did not have any evidence of pneumonia on the CT abdomen and pelvis just atelectasis, antibiotics were changed accordingly. Head ct reported as worsening hydrocephalus? I reviewed the case with the patient's neurosurgeon Dr. Gupta who advised outpatient follow-up fall risk continue home meds on prednisone, duonebs for copd, wean off oxygen as tolerated. DVT hep sq Diet cardiac Full code Medical - PN: Qual - VTE Deep Vein Thrombosis/Pulmonary Embolism Present on Admission: No
[2017-10-16] MEDS: hydrALAZINE 10 MG TABLET PO PRN (20:35)
[2017-10-17] MEDS: guaiFENesin 600 MG TAB.SR.12H PO PRN (03:58)
[2017-10-17] MEDS: IPRATROPIUM/ALBUTEROL 3 ML AMPUL.NEB NEB SCH ×6 (03:58→22:12)
[2017-10-17] MEDS: 0.9 % SODIUM CHLORIDE 10 ML SYRINGE IV SCH ×3 (05:17→21:17)
[2017-10-17 05:27] LABS: Basophils # (Auto) 0 K/mcL (0.0-0.3); Basophils % (Auto) 0.2 % (0.0-2.0); Eosinophils # (Auto) 0 K/mcL (0.0-0.7); Eosinophils % (Auto) 0 % (0.0-7.0); Granulocytes % (Auto) 76.4 % (38.0-78.0); Lymphocytes # (Auto) 2.1 K/mcL (1.5-4.8); Lymphocytes % (Auto) 17.3 % (15.5-49.0); Mean Cell Volume 87.7 fL (80.0-100.0); Mean Corpuscular HGB Conc 33.1 g/dL (31.0-36.0); Monocytes # (Auto) 0.8 K/mcL (0.1-0.9); Monocytes % (Auto) 6.1 % (1.0-12.0); Platelet Count 259 K/mcL (140-440); RBC 4.46 M/mcL (4.50-5.90); Red Cell Distribution Width 13.6 % (11.5-14.5)
[2017-10-17 06:01] LABS: ALT/SGPT 31 U/l (0-40); Albumin 3.4 gm/dL (3.2-5.2); Albumin/Globulin Ratio 1.2 (1.0-2.3); Alkaline Phosphatase 108 U/L (39-117); Bilirubin,Direct < 0.2 mg/dL (0.0-0.3); Blood Urea Nitrogen 13 mg/dl (8-23); Gamma Glutamyl Transpeptidase 41 U/L (8-61); Uric Acid 5.4 mg/dL (2.5-8.0)
[2017-10-17] MEDS ORDERED: FLEETS ADULT ENEMA PR PRN (07:42)
[2017-10-17] MEDS ORDERED: MAGNESIUM HYDROXIDE 30 ML ORAL.SUSP PO PRN (07:42)
[2017-10-17] MEDS ORDERED: BISACODYL 10 MG SUPP.RECT PR PRN (07:42)
[2017-10-17] MEDS: cefTRIAXone 2 GM VIAL IV SCH (08:34)
[2017-10-17] MEDS: predniSONE 20 MG TABLET PO SCH (08:35)
[2017-10-17] MEDS: LISINOPRIL 20 MG TABLET PO SCH (08:35)
[2017-10-17] MEDS: HEPARIN 5,000 UNIT/ML VIAL SQ SCH ×2 (08:35→20:56)
[2017-10-17] MEDS: METOPROLOL TARTRATE 50 MG TABLET PO SCH ×2 (08:36→20:56)
[2017-10-17] MEDS: amLODIPine 5 MG TABLET PO SCH (08:36)
[2017-10-17] MEDS: ASPIRIN 325 MG ENTERIC COATED TABLET PO SCH (08:36)
--- NOTE | 2017-10-17 12:47 | Internal Med Progress Note ---
Medical - PN: Subj Patient information: Note initiated : 10/17/17 at 12:44 pm Service Date, if different from initiated Date: [] Patient: César Wyman a 76 y/o M admitted on 10/14/17 for Weakness/Urosepsis. Chief Complaint: [] Interval history: Mr. Wyman is a 76 year old M with h/o c va, ? dementia, NPH s/p EDI COORDINATOR shunt 2 weeks ago, resident at assisted living facility presents to the ER today brought in by EMS for AMS, ? found down? this AM. The patient is a poor history provider denies any acute complaints except for wet cough x 3-5 days. The patient was found altered and confused since 4 this AM, as per the nursing, sitting in his room with inability to get up and with fever, tachycardia and some shortness of breath. At baseline the patient seems to be fairly with it, able to care for self with help, ambulating with the help of a walker. In the ER the patient was noted to be febrile, tachycardic, he had an elevated wbc count, and was quite confused and figidty. His CXR interpreted as possible Right basilar pna, ua suggestive of UTI, he was given ABX and admitted to the hospital for further management. lactic acid is normal echo done this year 05/06- normal lvef, 10/15 Patient seen examined, no acute overnight issues, pt tolerating po diet well, hemodynamically stable Renal usg done pending result but on my view I see some dilatation of rigth side renal pelvis, pt has worsening leucocytosis, will get CT abdomen and pelvis pt quite emotionally labile, wants to go home will xfer to med surg today. 10/16 Patient seen and examined, overnight the patient was a bit anxious and tried to get out of bed otherwise no complaints. This morning sitting in the chair comfortably ate his breakfast. Mood seems to be better. CT negative for any acute intra-abdominal pathology. Urine culture pending blood cultures negative. No evidence of pneumonia basilar region on the CT scan of the abdomen. Discontinue ertapenem and start the patient on Rocephin starting tomorrow. It seems he got a dose of ertapenem today. Continue to work with rehab anticipate discharge on Tuesday 10/17 Pt seen examined, in bed comfortable denies any complaints appears more drowsy and weak today compared to yesterday motley was taken out yesterday, has increased urine today, will straight cath for now, if needed will replace motley if needed labs improving microbiology shows ecoli sensitive to rocephin, on same. await d/c to snf in AM Pertinent ROS: Denies headache, dizziness Denies chest pain, palpitations Denies cough or shortness of breath Denies abdominal pain, nausea or vomiting. - Constitutional Vitals: Vital Signs Temp Pulse Resp BP Pulse Ox 98.2 F 66 20 158/70 93 10/17/17 12:00 10/17/17 12:00 10/17/17 12:00 10/17/17 12:00 10/17/17 12:00 Period Temp Pulse Resp BP Sys/Rod Pulse Ox Last 24 Hr 97.2 F-98.2 F 56-82 16-21 154-167/68-89 91-96 Intake and Output 10/16/17 10/17/17 10/17/17 21:59 05:59 13:59 Intake Total 460 / 460 200 / 200 Output Total 801 / 801 Balance -341 / -341 198 / 198 - - Weight 183 lb 8 oz Intake & Output: Intake & Output 10/16/17 10/17/17 10/17/17 21:59 05:59 13:59 Intake Total 460 / 460 200 / 200 Output Total 801 / 801 Balance -341 / -341 198 / 198 - -1 Weight 183 lb 8 oz Intake: Oral 460 / 460 200 / 200 Output: Urine Catheter Amount 800 / 800 # of times incontinent of urine Other: Meal Dinner Breakfast Percent of Meal Consumed 100% 100% Feeding Ability Assist with Tray Set Up Stool Size Smear Stool Color Brown Exam: Constitutional; Afebrile, cooperative, alert, not in distress. Eyes- No icterus, , No periorbital swelling Ears- Ext ear normal, hearing normal to conversation. Neck- Midline trachea, supple Respiratory system: Air Entry equal on both sides, No crackles or wheezing, no rhonchi. CVS- Rate rhythm regular, S1,S2 heard, no gallop, no rub. Abdomen- Soft nontender abdomen, no organomegaly, no tenderness, no guarding or rigidity, ICE CREAM TRUCK DRIVER- AOOx1, moving all extremities, no gross focal deficit noted. Medical - PN: Obj Da - Labs CBC & Chem 7: 10/17/17 03:45 10/17/17 03:45 Labs: Abnormal Lab Results 10/17/17 10/17/17 10/16/17 03:45 03:45 03:40 WBC 12.4 H RBC 4.46 L Hgb 12.9 L Hct 39.1 L Gran % Lymph % (Auto) Gran # 9.5 H Nance # (Auto) Glucose 108 H ALT 42 H Triglycerides 165 H 10/16/17 10/15/17 10/15/17 03:40 03:40 03:40 WBC 15.1 H 21.5 H RBC 4.43 L 4.34 L Hgb 12.9 L 12.8 L Hct 38.7 L 38.4 L Gran % 86.3 H Lymph % (Auto) 8.0 L Gran # 11.5 H 18.6 H Nance # (Auto) 1.2 H Glucose 118 H ALT 59 H Triglycerides Meds: Medications Acetaminophen (Tylenol) 650 mg PO Q6HP PRN PRN Reason: PAIN/FEVER > 101 Last Admin: 10/16/17 15:36 Dose: 650 mg Albuterol/Ipratropium (Duoneb) 3 ml NEB Q4HRT [facility] Last Admin: 10/17/17 12:15 Dose: Not Given Amlodipine Besylate (Norvasc) 10 mg PO QDAY [facility] Last Admin: 10/17/17 08:36 Dose: 10 mg Aspirin (Ecotrin) 325 mg PO DAILY [facility] Last Admin: 10/17/17 08:36 Dose: 325 mg Bisacodyl (Dulcolax) 10 mg CO Q2-3DAYS PRN PRN Reason: Constipation Ceftriaxone Sodium (Rocephin) 2 gm IV DAILY [facility] Last Admin: 10/17/17 08:34 Dose: 2 gm Docusate Sodium (Colace) 100 mg PO BID PRN PRN Reason: Constipation Guaifenesin (Mucinex) 600 mg PO DAILYP PRN PRN Reason: Cough Last Admin: 10/17/17 03:58 Dose: 600 mg Heparin Sodium (Porcine) (Heparin) 5,000 unit SQ Q12 [facility] Last Admin: 10/17/17 08:35 Dose: 5,000 unit Hydralazine HCl (Apresoline) 10 mg PO TIDP PRN PRN Reason: Blood Pressure Last Admin: 10/16/17 20:35 Dose: 10 mg Acetaminophen (Ofirmev) 650 mg in 65 mls @ 130 mls/hr IV Q6HP PRN PRN Reason: PAIN/FEVER > 101 Lisinopril (Zestril) 20 mg PO DAILY [facility] Last Admin: 10/17/17 08:35 Dose: 20 mg Magnesium Hydroxide (Milk Of Magnesia) 30 ml PO DAILYP PRN PRN Reason: Constipation Last Admin: 10/17/17 08:35 Dose: 30 ml Metoprolol Tartrate (Lopressor) 75 mg PO BID [facility] Last Admin: 10/17/17 08:36 Dose: 75 mg Ondansetron HCl (Zofran) 4 mg IV Q4HP PRN PRN Reason: Nausea And Vomiting Prednisone (Prednisone) 40 mg PO [facility] Stop: 10/18/17 08:01 Last Admin: 10/17/17 08:35 Dose: 40 mg Sodium Biphosphate/Sodium Phosphate (Fleets Adult) 1 dose CO Q3-4DAYS PRN PRN Reason: Constipation Sodium Chloride (Saline Flush) 10 ml IV Q8 [facility] Last Admin: 10/17/17 12:41 Dose: 10 ml Medical - PN: A/P - Time Spent With Patient Total time spent is greater than 50% in coordination of care (as documented) at patient's floor/unit and/or counseling patient: - Narrative A/P Narrative: a/P UTI- Pneumonia, possible aspiration Sepsis HTN HLD Altered mental status/ Delirium h/o CVA BPH abnl lft COPD exacerbation Plan cultures reviewed, on rocephin per sensitivity. anticipate total of 2 week treatment pt mental status better, but a bit drowsy today, has no complaints The patient did not have any evidence of pneumonia on the CT abdomen and pelvis just atelectasis, antibiotics were changed accordingly. Head ct reported as worsening hydrocephalus? I reviewed the case with the patient's neurosurgeon Dr. Gupta who advised outpatient follow-up fall risk continue home meds on prednisone, duonebs for copd, wean off oxygen as tolerated. no wheeze on exam today. prn straight cath, replace foely in needed ,started on tamsulosin. DVT hep sq Diet cardiac Full code Medical - PN: Qual - VTE Deep Vein Thrombosis/Pulmonary Embolism Present on Admission: No
[2017-10-17] MEDS: TAMSULOSIN 0.4 MG CAPSULE PO SCH (13:30)
[2017-10-18] MEDS: IPRATROPIUM/ALBUTEROL 3 ML AMPUL.NEB NEB SCH ×2 (03:06→06:49)
[2017-10-18] MEDS: 0.9 % SODIUM CHLORIDE 10 ML SYRINGE IV SCH ×2 (03:38→08:29)
[2017-10-18 05:39] LABS: Basophils # (Auto) 0 K/mcL (0.0-0.3); Basophils % (Auto) 0.2 % (0.0-2.0); Eosinophils # (Auto) 0 K/mcL (0.0-0.7); Eosinophils % (Auto) 0.1 % (0.0-7.0); Granulocytes % (Auto) 70.2 % (38.0-78.0); Lymphocytes # (Auto) 3.2 K/mcL (1.5-4.8); Lymphocytes % (Auto) 24.1 % (15.5-49.0); Mean Cell Volume 88.3 fL (80.0-100.0); Mean Corpuscular HGB Conc 32.5 g/dL (31.0-36.0); Mean Corpuscular Hemoglobin 28.7 pg (26.0-34.0); Monocytes # (Auto) 0.7 K/mcL (0.1-0.9); Monocytes % (Auto) 5.4 % (1.0-12.0); Platelet Count 272 K/mcL (140-440); RBC 4.89 M/mcL (4.50-5.90); Red Cell Distribution Width 13.9 % (11.5-14.5)
[2017-10-18 06:06] LABS: ALT/SGPT 34 U/l (0-40); Albumin 3.7 gm/dL (3.2-5.2); Albumin/Globulin Ratio 1.1 (1.0-2.3); Alkaline Phosphatase 94 U/L (39-117); Bilirubin,Direct < 0.2 mg/dL (0.0-0.3); Blood Urea Nitrogen 15 mg/dl (8-23); Gamma Glutamyl Transpeptidase 46 U/L (8-61); Uric Acid 5.2 mg/dL (2.5-8.0)
[2017-10-18] MEDS: LISINOPRIL 20 MG TABLET PO SCH (08:28)
[2017-10-18] MEDS: predniSONE 20 MG TABLET PO SCH (08:28)
[2017-10-18] MEDS: TAMSULOSIN 0.4 MG CAPSULE PO SCH (08:29)
[2017-10-18] MEDS: ASPIRIN 325 MG ENTERIC COATED TABLET PO SCH (08:29)
[2017-10-18] MEDS: METOPROLOL TARTRATE 50 MG TABLET PO SCH (08:29)
[2017-10-18] MEDS: cefTRIAXone 2 GM VIAL IV SCH (08:30)
[2017-10-18] MEDS: HEPARIN 5,000 UNIT/ML VIAL SQ SCH (08:30)
[2017-10-18] MEDS: amLODIPine 5 MG TABLET PO SCH (08:30)
--- NOTE | 2017-10-18 11:14 | Discharge Summary ---
Medical - DS: Prov Patient information: Note initiated : 10/18/17 at 11:09 am Service Date, if different from initiated Date: [] Patient: César Wyman 76 y/o M admitted on 10/14/17 for Weakness/Urosepsis. Chief Complaint: [] Date of admission: 10/14/17 09:50 Discharge date: 10/18/17 Primary care physician: Cornelio Santamaria Admitting clinician: Khalida Brito Consults: 10/14/17 08:43 Consult to Physician [CONS] Stat Comment: Consulting Provider: Khalida Brito Reason For Exam: Physician to Consult Discharging clinician: Khalida Brito Medical - DS: Meds - Discharge Medications Prescriptions: Cephalexin [Keflex] 500 mg PO QID #44 cap Tamsulosin [Flomax] 0.4 mg PO DAILY #30 cap traMADol [Ultram] 50 - 100 mg PO Q4-6HP PRN #50 tab PRN Reason: Pain Active and Home Medications: Home Medications aspirin 325 mg tablet 325 mg PO QDAY 04/29/17 [History Confirmed 10/14/17 Last Taken 10/13/17] docusate sodium 100 mg capsule 100 mg PO BID PRN 04/29/17 [History Confirmed Last Taken 10/13/17] naproxen sodium 220 mg tablet 220 mg PO Q6H PRN tab 04/29/17 [History Confirmed 10/14/17 Last Taken Unknown] ramipril 10 mg capsule 10 mg PO QDAY #90 cap 08/24/17 [Rx Confirmed 10/14/17 Last Taken 10/13/17] metoprolol tartrate 50 mg tablet 75 mg PO BID #180 tab 09/07/17 [Rx Confirmed Last Taken 10/13/17] sennosides 8.6 mg tablet 8.6 mg PO BID PRN #180 tab 09/21/17 [Rx Confirmed 10/14 Last Taken 10/13/17] acetaminophen ER 650 mg tablet,extended release 650 mg PO BID #270 tab 09/23/17 [Rx Confirmed 10/14/17 Last Taken 10/13/17] Naproxen [Naprosyn] 250 mg PO QAMCC PRN 10/14/17 [History Confirmed 10/14/17 Last Taken Unknown] Ondansetron HCl [Zofran ODT] 4 mg SL Q4HP PRN 10/14/17 [History Confirmed Last Taken Unknown] amLODIPine [Norvasc] 10 mg PO QDAY 10/14/17 [History Confirmed 10/14/17 Last Taken 10/13/17] guaiFENesin [Mucinex] 600 mg PO DAILY PRN 10/14/17 [History Confirmed 10/14/17 Last Taken Unknown] hydrALAZINE [Apresoline] 10 mg PO TID PRN 10/14/17 [History Confirmed 10/14/17 Last Taken Unknown] traMADol [Ultram] 50 - 100 mg PO Q4-6HP PRN 10/14/17 [History Confirmed Last Taken Unknown] Medical - DS: Hosp Hospital course: Mr. Wyman is a 76 year old M with h/o cva, ? dementia, NPH s/p [employer] CLAIMS [employer]ISTANT shunt 2 weeks ago, resident at assisted living facility presents to the ER today brought in by EMS for AMS, ? found down? this AM. The patient is a poor history provider denies any acute complaints except for wet cough x 3-5 days. The patient was found altered and confused since 4 this AM, as per the nursing, sitting in his room with inability to get up and with fever, tachycardia and some shortness of breath. At baseline the patient seems to be fairly with it, able to care for self with help, ambulating with the help of a walker. In the ER the patient was noted to be febrile, tachycardic, he had an elevated wbc count, and was quite confused and figidty. His CXR interpreted as possible Right basilar pna, ua suggestive of UTI, he was given ABX and admitted to the hospital for further management. lactic acid is normal echo done this year 05/06- normal lvef, Patient admitted to the hospital for further management UTI, with sepsis- Ecoli noted in urine, sensitive to cephalosporins, CT neg for any pylenophritis, IV rocephin given with good response, to complete a course fo 14 days. Will be discharged with oral keflex 500mg qid x 11 more days. Urinary retention- During the hospital stay unable to void, due to UTI? vs BPH, motley placed, started on flomax, needs voiding trial in 1 week, can be done by PCP / Facility provider. Hydrocephalus? NPH- Pt followed by Dr Lowe, patient CT head shows slight worsening of hydrocephalus, discussed with the neurosurgeon, no active intervention needed. follow up wit him in 2 2weeks Patient is a bit anxious about his motley but otherwise is well behaved in the hospital, although he needs to be monitored, he has not required ativan or any anti psychotic medication. The rest of the stay in the hospital was uneventful, no changes made to his [facility] home med list,(added flomax), he was weak and could not be discharged to his assisted living facility, will be discharged to SNF for rehab Discharge diagnosis: UTI, - Time Spent with Patient Total time spent providing and/or coordinating discharge services: Greater than 30 minutes Medical - DS: Exam - Constitutional Vitals: Vital Signs Temp Pulse Pulse Resp BP BP Pulse Ox 10/18/17 11:03 97.8 F 18 147/80 92 10/18/17 06:54 78 18 94 10/18/17 06:47 98.8 F 20 165/78 93 10/18/17 03:07 69 20 10/18/17 03:03 97.8 F 58 L 20 177/88 94 10/17/17 23:05 97.8 F 75 18 157/75 92 10/17/17 22:13 71 16 10/17/17 19:41 97.4 F 88 18 141/75 91 10/17/17 18:43 81 18 93 10/17/17 16:00 98.5 F 89 21 149/79 93 10/17/17 15:09 64 16 10/17/17 12:00 98.2 F 66 20 158/70 93 Intake and Output 10/17/17 10/18/17 10/18/17 21:59 05:59 13:59 Intake Total 1060 / 1060 810 / 810 Output Total 826 / 826 561 / 561 1200 / 1200 Balance 234 / 234 249 / 249 -1200 / -1200 Intake: Oral 1060 / 1060 810 / 810 Output: Urine Catheter Amount 825 / 825 550 / 550 1200 / 1200 Void Amount 10 / 10 # of times incontinent of urine Other: Meal Dinner chocolate pudding Percent of Meal Consumed 100% 100% Feeding Ability Assist with Tray Set Up Stool Size Small Moderate Moderate Stool Color Brown Brown Brown Stool Consistency Soft Soft Soft Loose Loose # Bowel Movements 1 # of times incontinent of 1 2 1 Bowels Weight 185 lb Additional comments: Constitutional; Afebrile, cooperative, alert, not in distress. Eyes- No icterus, , No periorbital swelling Ears- Ext ear normal, hearing normal to conversation. Neck- Midline trachea, supple Respiratory system: Air Entry equal on both sides, No crackles or wheezing, no rhonchi. CVS- Rate rhythm regular, S1,S2 heard, no gallop, no rub. Abdomen- Soft nontender abdomen, no organomegaly, no tenderness, no guarding or rigidity, [employer]- AOOx2, moving all extremities, no gross focal deficit noted. Medical - DS: Data Labs on day of discharge: Labs from last 24 hours 10/18/17 10/18/17 03:45 03:45 WBC 13.5 H RBC 4.89 Hgb 14.0 Hct 43.2 MCV 88.3 MCH 28.7 MCHC 32.5 RDW 13.9 Plt Count 272 MPV 9.1 Gran % 70.2 Lymph % (Auto) 24.1 Knox % (Auto) 5.4 Eos % (Auto) 0.1 Baso % (Auto) 0.2 Gran # 9.4 H Lymph # (Auto) 3.2 Knox # (Auto) 0.7 Eos # (Auto) 0 Baso # (Auto) 0 Sodium 140 Potassium 3.8 Chloride 100 Carbon Dioxide 25 Anion Gap 15.0 BUN 15 Creatinine 0.9 GFR Calculation 83 Glucose 91 Uric Acid 5.2 Calcium 9.0 Phosphorus 3.3 Magnesium 2.4 Total Bilirubin 0.3 Direct Bilirubin < 0.2 GGT 46 AST 17 ALT 34 Alkaline Phosphatase 94 Lactate Dehydrogenase 218 Total Protein 7.2 Albumin 3.7 Globulin 3.5 Albumin/Globulin Ratio 1.1 Triglycerides 140 Preliminary micro results at discharge 10/14/17 07:56 Blood Culture - Preliminary Blood 10/14/17 08:09 Blood Culture - Preliminary Blood Medical - DS: A/P - Patient/Caregiver Discharge Instructions Activity: increase activity as tolerated Diet: Dysphagia Advanced (Thin liquids. ) Additional Instructions: Please do a voiding trial in 7 days, if patient fails, please re insert the motley catheter. If patient fails, consider referral to a urologist. PCP advised to check CBC and CMP in 1 week GO to the ER if fever, chest pain, shortness of breath or any other acute concern. Oral keflex 500mg qid x 11 more days for his UTI FOllow up with Dr Lowe (neurosurgeon) in 2 weeks for his hydrocephalus - Follow up Plan Follow up with: Cornelio Santamaria MD [Primary Care Provider] - Gautam Graham [Physician] - Disposition: Xfer SNF Prognosis: Fair Rehab Potential: Fair I certify that the patient requires SNF services: Yes Overall status at discharge: patient is progressing back to baseline Medical - DS: Qual - VTE Deep Vein Thrombosis/Pulmonary Embolism Present on Admission: No
== END 2017-10-18 12:21 | DRG 871 ==
LOC: ED 07:16 → ICU 09:50 → MEDSUR 10-15 12:49
PROVIDERS: ADMIT Internal Medicine; ATTEND Internal Medicine